=== PATIENT | male | born 1950 | race Caucasian/White ===

== ENCOUNTER → 2017-10-13 | Outpatient (CLI) | payer MEDICARE, OTHER ==
[~2017-10-13] MED LIST: ASCO10004 PO; ASPI-515 PO; GABA600T2 PO; LISI-167 PO; TRAM50TA2 PO
== END | disposition home or self-care (01) ==
LOC: CARD 13:53
PROVIDERS: ATTEND Nurse Practitioner
DX: J44.9 Chronic obstructive pulmonary disease, unspecified (principal)
CPT/HCPCS: 94618

== ENCOUNTER → 2020-10-20 | Outpatient (CLI) | payer MEDICARE ==
[~2020-10-20] MED LIST changes: +ACET-1600 PO; +ALEN70TA77 PO; +ASCO100018 PO; +ASCO100019 PO; -ASCO10004 PO; -ASPI-515 PO; +ASPI-963 PO; +CHOL200074 PO; +FLUT1AER INH; -GABA600T2 PO; +GABA600T7 PO; +LISI1TAB23 PO; +NAPR220T77 PO; +OMEP-110 PO; +OXYC1TAB7 PO
== END | disposition home or self-care (01) ==
LOC: CVU 14:00
PROVIDERS: ATTEND Student in an Organized Health Care Education/Training Program
DX: Z01.810 Encounter for preprocedural cardiovascular examination (principal); I65.29 Occlusion and stenosis of unspecified carotid artery; J44.9 Chronic obstructive pulmonary disease, unspecified; I10 Essential (primary) hypertension; I08.3 Combined rheumatic disorders of mitral, aortic and tricuspid valves; I27.20 Pulmonary hypertension, unspecified; Z87.891 Personal history of nicotine dependence
CPT/HCPCS: 93308; 93321; 93325